=== PATIENT | female | born 1955 | race Caucasian/White ===

== ENCOUNTER 2020-11-17 19:46 | Observation (INO) ==
[2020-11-17] MEDS ORDERED: hydrALAZINE 20 MG/1 ML VIAL IV PRN (23:19)
[2020-11-17] MEDS ORDERED: NICOTINE 21 MG/24 HR PATCH TRANSDERM PRN (23:19)
[2020-11-17] MEDS ORDERED: DEXTROSE 50% 25 GM/50 ML VIAL IV PRN (23:19)
[2020-11-17] MEDS ORDERED: guaiFENesin/DM ER 600-30 MG TABLET PO PRN (23:19)
[2020-11-17] MEDS ORDERED: MORPHINE 4 MG/1 ML VIAL IV PRN (23:19)
[2020-11-17] MEDS ORDERED: GLUCAGON 1 MG VIAL IM PRN (23:19)
[2020-11-17] MEDS ORDERED: ACETAMINOPHEN 325 MG TABLET PO PRN (23:19)
[2020-11-17] MEDS ORDERED: ZALEPLON 5 MG CAPSULE PO PRN (23:19)
[2020-11-17] MEDS ORDERED: DOCUSATE SODIUM 100 MG CAPSULE PO PRN (23:19)
[2020-11-17] MEDS ORDERED: diphenhydrAMINE CAP 25 MG CAPSULE PO PRN (23:19)
[2020-11-17] MEDS ORDERED: ONDANSETRON 4 MG/2 ML VIAL IV PRN (23:19)
[2020-11-17] MEDS ORDERED: ENOXAPARIN 40 MG/0.4 ML SYRINGE SUBCUT SCH (23:30)
[2020-11-17 23:38] LABS: Basophils % 0.5 % (0.0-0.8); Eosinophils # 0.1 10*3/uL (0.0-0.87); Eosinophils % 1.1 % (0.00-10.9); Hematocrit 41.8 VOL% (35.7-47.0); Hemoglobin 13.4 GM/DL (12.0-16.0); Immature Granulocytes % 0.3 %; Immature Granulocytes Absolute 0.02 #; Lymphocytes # 3.4 10*3/uL (1.4-4.0); Lymphocytes % 43.7 % (21.3-54.2); Mean Corpuscular HGB Conc 32.1 GM/DL (32-36); Mean Corpuscular Volume 86.2 FL (87-102); Mean Platelet Volume 10.5 FL (9.6-12.0); Monocytes % 10.5 % (1.7-12.7); Neutrophils % 43.9 % (38.7-73.9); Platelet Count 244 T/CUMM (130-400); Red Blood Count 4.85 MC/CUMM (3.8-5.5); Red Cell Distribution Width 13.2 % (9.3-17.3); White Blood Count 7.8 T/CUMM (4-12)
[2020-11-17 23:51] LABS: Calcium 8.9 MG/DL (8.5-10.1); Osmolality,Calculated 272.8 MOS/KG (273-304); Potassium 3.9 MMOL/L (3.5-5.1)
[2020-11-18 01:28] LABS: ABG HCO3 23.6 MMOL/L (20-26); ABG Oxygen Saturation 99.8 % (95-100); ABG PCO2 22.7 MM HG (35-48); ABG PH 7.544 (7.35-7.45); ABG TCO2 16.9 MMOL/L (23-27)
[2020-11-18] MEDS ORDERED: PARoxetine 20 MG TABLET PO SCH (09:00)
[2020-11-18] MEDS ORDERED: SIMVASTATIN 20 MG TABLET PO SCH (09:00)
[2020-11-18] MEDS ORDERED: LOSARTAN 25 MG TABLET PO SCH (09:00)
[2020-11-18] MEDS ORDERED: PANTOPRAZOLE 40 MG TABLET PO SCH (09:00)
[2020-11-18 12:07] VITALS: BP 141/69
== END 2020-11-18 15:07 | disposition home or self-care (01) ==
LOC: N.5E → SUATTDRO 22:46
PROVIDERS: ADMIT Internal Medicine; ATTEND Student in an Organized Health Care Education/Training Program

== ENCOUNTER 2020-11-22 07:03 | Observation (INO) ==
[2020-11-22] MEDS ORDERED: ASPIRIN 325 MG TABLET PO STA (08:04)
[2020-11-22] MEDS ORDERED: NITROGLYCERIN 2% OINT 1 INCH/GM PACK TOP STA (08:05)
[2020-11-22] MEDS ORDERED: ENOXAPARIN 100 MG/ML SYRINGE SUBCUT STA (08:05)
[2020-11-22 08:15] LABS: Basophils # 0.1 10*3/uL (0.0-0.2); Basophils % 0.7 % (0.0-0.8); Eosinophils # 0.1 10*3/uL (0.0-0.87); Hematocrit 38.3 VOL% (35.7-47.0); Hemoglobin 12.8 GM/DL (12.0-16.0); Immature Granulocytes % 0.1 %; Immature Granulocytes Absolute 0.01 #; Lymphocytes # 2.1 10*3/uL (1.4-4.0); Lymphocytes % 31.1 % (21.3-54.2); Mean Corpuscular HGB Conc 33.4 GM/DL (32-36); Mean Corpuscular Volume 86.7 FL (87-102); Mean Platelet Volume 11.2 FL (9.6-12.0); Monocytes % 10.7 % (1.7-12.7); Neutrophils % 56.4 % (38.7-73.9); Platelet Count 178 T/CUMM (130-400); Red Blood Count 4.42 MC/CUMM (3.8-5.5); White Blood Count 6.7 T/CUMM (4-12)
[2020-11-22 08:28] LABS: Albumin 3.8 G/DL (3.4-5.0); Bilirubin,Total 0.4 MG/DL (0.2-1.0); Calcium 9.4 MG/DL (8.5-10.1); Osmolality,Calculated 282.3 MOS/KG (273-304); Potassium 4.2 MMOL/L (3.5-5.1); Total Protein 6.5 G/DL (6.4-8.2)
[2020-11-22] MEDS ORDERED: MAGNESIUM SULF RIDER 2 GM/50 ML PREMIX IV PRN (09:07)
[2020-11-22] MEDS ORDERED: guaiFENesin/DM ER 600-30 MG TABLET PO PRN (09:07)
[2020-11-22] MEDS ORDERED: POTASSIUM CHLORIDE 20 MEQ TABLET PO PRN (09:07)
[2020-11-22] MEDS ORDERED: MAGNESIUM SULF RIDER 4 GM/100 ML PREMIX IV PRN (09:07)
[2020-11-22] MEDS ORDERED: ACETAMINOPHEN 325 MG TABLET PO PRN (09:07)
[2020-11-22] MEDS ORDERED: ALUMINUM/MAGNES/SIMETH MAX STR 30 ML UDCUP PO PRN (09:07)
[2020-11-22] MEDS ORDERED: ONDANSETRON 4 MG/2 ML VIAL IV PRN (09:07)
[2020-11-22] MEDS ORDERED: hydrALAZINE 20 MG/1 ML VIAL IV PRN (09:07)
[2020-11-22] MEDS ORDERED: ZALEPLON 5 MG CAPSULE PO PRN (09:07)
[2020-11-22] MEDS ORDERED: DOCUSATE SODIUM 100 MG CAPSULE PO PRN (09:07)
[2020-11-22] MEDS ORDERED: diphenhydrAMINE CAP 25 MG CAPSULE PO PRN (09:07)
[2020-11-22 09:33] LABS: Risk Ratio 5.14; Thyroid Stimulating Hormone 3.59 uIU/ml (0.358-3.74); VLDL CHOLESTEROL 59.4 MG/DL
[2020-11-22] MEDS ORDERED: REGADENOSON 0.4 MG/5 ML SYRINGE IV ONE (09:43)
[2020-11-22] MEDS: ENOXAPARIN 40 MG/0.4 ML SYRINGE SUBCUT SCH (12:50)
[2020-11-22 13:07] LABS: Bilirubin,Urine Negative (Negative); Blood, Urine Negative (Negative); Glucose,Urine (UA) Negative (Negative); Hyaline Casts,Urine 1 /LPF (0-3); Ketones,Urine Negative (Negative); Mucus,Urine Occasional /LPF (Occasional); Nitrite,Urine Negative (Negative); Protein,Urine Negative; RBC,Urine <1 /HPF (0-4); Squamous Epithelial Cell,Urine Occasional /HPF (0-10); Urine Appearance CLEAR (Clear); Urine Color Yellow (Yellow); Urine Specific Gravity 1.021 (1.001-1.035); Urine Urobilinogen < 2.0 EU/DL (0.2-1.0)
[2020-11-22 13:28] LABS: Barbiturates Screen,Urine Negative (Negative); Benzodiazepines Screen,Urine Negative (Negative); Cannabinoid Screen,Urine Negative (Negative); Opiate Screen,Urine Negative (Negative); Phencyclidine Screen,Urine Negative (Negative)
[2020-11-22] MEDS: PANTOPRAZOLE 40 MG TABLET PO SCH (17:06)
[2020-11-22] MEDS: SUCRALFATE 1 GM TABLET PO SCH (18:31)
[2020-11-22] MEDS ORDERED: ROSUVASTATIN 20 MG TABLET PO SCH (21:00)
[2020-11-23 04:30] LABS: Basophils % 0.5 % (0.0-0.8); Eosinophils # 0.1 10*3/uL (0.0-0.87); Eosinophils % 1.3 % (0.00-10.9); Hematocrit 35.1 VOL% (35.7-47.0); Hemoglobin 11.5 GM/DL (12.0-16.0); Immature Granulocytes % 0.2 %; Immature Granulocytes Absolute 0.01 #; Lymphocytes % 32.2 % (21.3-54.2); Mean Corpuscular HGB Conc 32.8 GM/DL (32-36); Mean Corpuscular Volume 86.7 FL (87-102); Mean Platelet Volume 10.9 FL (9.6-12.0); Monocytes % 10.6 % (1.7-12.7); Neutrophils % 55.2 % (38.7-73.9); Platelet Count 166 T/CUMM (130-400); Red Blood Count 4.05 MC/CUMM (3.8-5.5); Red Cell Distribution Width 13.1 % (9.3-17.3); White Blood Count 6.2 T/CUMM (4-12)
[2020-11-23 05:05] LABS: Albumin 3.2 G/DL (3.4-5.0); Calcium 8.6 MG/DL (8.5-10.1); Osmolality,Calculated 284.1 MOS/KG (273-304); Potassium 3.9 MMOL/L (3.5-5.1); Total Protein 5.9 G/DL (6.4-8.2)
[2020-11-23 08:16] VITALS: BP 118/66
[2020-11-23] MEDS: SUCRALFATE 1 GM TABLET PO SCH (08:25)
[2020-11-23] MEDS: PANTOPRAZOLE 40 MG TABLET PO SCH (08:25)
[2020-11-23] MEDS ORDERED: PANTOPRAZOLE 40 MG TABLET PO SCH (09:00)
[2020-11-23] MEDS ORDERED: ASPIRIN EC 81 MG TABLET PO SCH (09:00)
[2020-11-23] MEDS: ENOXAPARIN 40 MG/0.4 ML SYRINGE SUBCUT SCH (09:30)
== END 2020-11-23 10:22 | disposition home or self-care (01) ==
LOC: N.ED 07:03 → N.EDINP 07:03 → N.TELEN 17:45
PROVIDERS: ADMIT Internal Medicine Cardiovascular Disease; ATTEND Internal Medicine Cardiovascular Disease

== ENCOUNTER 2022-06-29 14:14 | Inpatient (IN) ==
[2022-06-29] MEDS ORDERED: ONDANSETRON 4 MG/2 ML VIAL ONE (16:36)
[2022-06-29] MEDS ORDERED: MORPHINE 2 MG/1 ML SYRINGE ONE (16:36)
[2022-06-29 16:37] LABS: Basophils # 0.1 10*3/uL (0.0-0.2); Basophils % 0.4 % (0.0-0.8); Eosinophils # 0.1 10*3/uL (0.0-0.87); Eosinophils % 0.3 % (0.00-10.9); Hematocrit 23.9 VOL% (35.7-47.0); Hemoglobin 6.9 GM/DL (12.0-16.0); Immature Granulocytes % 0.5 %; Immature Granulocytes Absolute 0.08 #; Lymphocytes # 2.3 10*3/uL (1.4-4.0); Mean Corpuscular HGB Conc 28.9 GM/DL (32-36); Mean Corpuscular Volume 67.9 FL (87-102); Mean Platelet Volume 9.5 FL (9.6-12.0); Monocytes # 1.3 10*3/uL (0.11-0.8); Monocytes % 8.6 % (1.7-12.7); Neutrophils % 75.2 % (38.7-73.9); Platelet Count 595 T/CUMM (130-400); Red Blood Count 3.52 MC/CUMM (3.8-5.5); Red Cell Distribution Width 20.1 % (9.3-17.3); White Blood Count 15.4 T/CUMM (4-12)
[2022-06-29] MEDS ORDERED: ONDANSETRON 4 MG/2 ML VIAL IV STA (16:53)
[2022-06-29] MEDS ORDERED: MORPHINE 2 MG/1 ML SYRINGE IV STA (16:53)
[2022-06-29 16:58] LABS: Albumin 2.4 G/DL (3.4-5.0); Bilirubin,Total 0.4 MG/DL (0.20-1.00); Calcium 9.1 MG/DL (8.5-10.1); Osmolality,Calculated 266.2 MOS/KG (273-304); Potassium 4.3 MMOL/L (3.5-5.1); Total Protein 6.2 G/DL (6.4-8.2)
[2022-06-29 17:05] LABS: Hypochromia 2+
[2022-06-29 17:06] LABS: Anisocytosis Slight; Elliptocytes Few; Platelet Estimate Increased
[2022-06-29] MEDS ORDERED: SODIUM CHLORIDE 0.9% 1,000 ML IV STA (17:17)
[2022-06-29] MEDS ORDERED: PIPERACILLIN/TAZOBACTAM 3,375 MG in SODIUM CHLORIDE 0.9% 100 ML IV STA (17:17)
[2022-06-29 18:17] LABS: Bacteria,Urine Occasional /HPF (Few); Bilirubin,Urine Negative (Negative); Blood, Urine Negative (Negative); Glucose,Urine (UA) Negative (Negative); Hyaline Casts,Urine 1 /LPF (0-3); Ketones,Urine Negative (Negative); Mucus,Urine Few /LPF (Occasional); Nitrite,Urine Negative (Negative); Protein,Urine Negative (Negative); RBC,Urine 2 /HPF (0-4); Squamous Epithelial Cell,Urine Occasional /HPF (0-10); Urine Appearance Clear (Clear); Urine Color Yellow (Yellow)
[2022-06-29] MEDS ORDERED: ACETAMINOPHEN 325 MG TABLET PO PRN (18:57)
[2022-06-29] MEDS ORDERED: SODIUM CHLORIDE 0.9% 1,000 ML IV PRN (19:00)
[2022-06-29] MEDS: VANCOMYCIN INJ 1,000 MG in SODIUM CHLORIDE 0.9% 250 ML IV SCH (20:30)
[2022-06-29] MEDS: ENOXAPARIN 40 MG/0.4 ML SYRINGE SUBCUT SCH (21:08)
[2022-06-29] MEDS: HYDROmorphone 1 MG/1 ML SYRINGE IV PRN (23:46)
[2022-06-30] MEDS: DEXTROSE 5% NACL 0.9% 1,000 ML IV SCH ×2 (05:22→21:03)
[2022-06-30 07:01] LABS: Basophils # 0.1 10*3/uL (0.0-0.2); Basophils % 0.5 % (0.0-0.8); Eosinophils # 0.1 10*3/uL (0.0-0.87); Hematocrit 29.6 VOL% (35.7-47.0); Immature Granulocytes % 0.8 %; Immature Granulocytes Absolute 0.11 #; Lymphocytes # 1.6 10*3/uL (1.4-4.0); Lymphocytes % 11.3 % (21.3-54.2); Mean Corpuscular HGB Conc 31.1 GM/DL (32-36); Mean Corpuscular Volume 72.2 FL (87-102); Mean Platelet Volume 10.2 FL (9.6-12.0); Monocytes # 1.5 10*3/uL (0.11-0.8); Monocytes % 10.8 % (1.7-12.7); Neutrophils % 75.6 % (38.7-73.9); Platelet Count 485 T/CUMM (130-400); Red Cell Distribution Width 22.5 % (9.3-17.3); White Blood Count 14.1 T/CUMM (4-12)
[2022-06-30 07:03] LABS: Hemoglobin 9.2 GM/DL (12.0-16.0)
[2022-06-30 07:10] LABS: Thyroid Stimulating Hormone 2.83 uIU/ml (0.358-3.74)
[2022-06-30 07:25] LABS: Hypochromia 1+; Microcytosis 1+
[2022-06-30 07:26] LABS: Ovalocytes Slight; Spherocytes Slight; Target Cells Slight
[2022-06-30 07:29] LABS: Folate 16.02 NG/ML (5.38-24.0); Vitamin B12 1380 PG/ML (211-911)
[2022-06-30 07:39] LABS: % Iron Saturation 71.2 % (18-50); Ferritin 86.7 ng/mL (8-252); Osmolality,Calculated 267.1 MOS/KG (273-304); Potassium 3.8 MMOL/L (3.5-5.1)
[2022-06-30] MEDS ORDERED: ceFAZolin 2,000 MG/50 ML DUPLEX IV ONE (07:40)
[2022-06-30 07:57] LABS: INR 1.1; PT Patient Result 11.9 SECS (10.1-12.1)
[2022-06-30 08:11] LABS: Sedimentation Rate-Westergren 95 MM/HR (0-30)
[2022-06-30] MEDS: VANCOMYCIN INJ 1,000 MG in SODIUM CHLORIDE 0.9% 250 ML IV SCH ×2 (08:25→21:03)
[2022-06-30] MEDS: ONDANSETRON 4 MG/2 ML VIAL IV PRN ×2 (09:02→18:18)
[2022-06-30] MEDS: HYDROmorphone 1 MG/1 ML SYRINGE IV PRN ×2 (09:03→18:18)
[2022-06-30] MEDS ORDERED: DIAZEPAM 5 MG TABLET PO ONE (09:41)
[2022-06-30] MEDS: PIPERACILLIN/TAZOBACTAM 3,375 MG in SODIUM CHLORIDE 0.9% 100 ML IV SCH ×2 (09:55→17:04)
[2022-06-30 10:41] LABS: Hemoglobin A1 (Alkaline) 97.6 % (96.5-98.5); Hemoglobin A2 (Alkaline) 2.4 % (1.5-3.5)
[2022-06-30] MEDS ORDERED: BUPIVACAINE MPF 0.25% 10 ML VIAL ONE (11:28)
[2022-06-30] MEDS ORDERED: LIDOCAINE 1%/EPI INJ 20 ML VIAL ONE (11:29)
[2022-06-30] MEDS ORDERED: MIDAZOLAM 2 MG/2 ML VIAL ONE (11:33)
[2022-06-30] MEDS ORDERED: fentaNYL 100 MCG/2 ML VIAL ONE (11:33)
[2022-06-30] MEDS ORDERED: LACTATED RINGERS 1,000 ML IV SCH (12:00)
[2022-06-30] MEDS ORDERED: ONDANSETRON 4 MG/2 ML VIAL ONE (12:02)
[2022-06-30] MEDS ORDERED: SEVOFLURANE 1 UNIT/15 MINUTE INH ONE (12:02)
[2022-06-30] MEDS ORDERED: LIDOCAINE 2% 5 ML VIAL ONE (12:02)
[2022-06-30] MEDS ORDERED: propofoL 200 MG/20 ML VIAL IV ONE (12:02)
[2022-06-30] MEDS ORDERED: fentaNYL 100 MCG/2 ML VIAL IV ONE (14:00)
[2022-06-30] MEDS ORDERED: MIDAZOLAM 2 MG/2 ML VIAL IV ONE (14:00)
[2022-06-30 14:32] LABS: Hematocrit 30.8 VOL% (35.7-47.0); Hemoglobin 9.4 GM/DL (12.0-16.0)
[2022-06-30] MEDS: ENOXAPARIN 40 MG/0.4 ML SYRINGE SUBCUT SCH (21:04)
[2022-06-30] MEDS: ZALEPLON 5 MG CAPSULE PO PRN (21:04)
[2022-06-30] MEDS: PANTOPRAZOLE 40 MG TABLET PO SCH (21:04)
[2022-07-01] MEDS: PIPERACILLIN/TAZOBACTAM 3,375 MG in SODIUM CHLORIDE 0.9% 100 ML IV SCH ×3 (00:27→17:05)
[2022-07-01 04:25] LABS: Basophils # 0.1 10*3/uL (0.0-0.2); Basophils % 0.5 % (0.0-0.8); Eosinophils # 0.2 10*3/uL (0.0-0.87); Eosinophils % 1.6 % (0.00-10.9); Hematocrit 29.8 VOL% (35.7-47.0); Hemoglobin 9.1 GM/DL (12.0-16.0); Immature Granulocytes % 0.5 %; Immature Granulocytes Absolute 0.06 #; Lymphocytes # 2.2 10*3/uL (1.4-4.0); Lymphocytes % 20.1 % (21.3-54.2); Mean Corpuscular HGB Conc 30.5 GM/DL (32-36); Mean Corpuscular Volume 73.2 FL (87-102); Mean Platelet Volume 9.4 FL (9.6-12.0); Monocytes # 1.2 10*3/uL (0.11-0.8); Neutrophils % 66.3 % (38.7-73.9); Platelet Count 470 T/CUMM (130-400); Red Blood Count 4.07 MC/CUMM (3.8-5.5); Red Cell Distribution Width 22.8 % (9.3-17.3)
[2022-07-01 04:45] LABS: Hypochromia 1+; Microcytosis 1+; Ovalocytes Slight
[2022-07-01 04:46] LABS: Platelet Estimate Increased; Spherocytes Slight
[2022-07-01 04:53] LABS: Calcium 8.4 MG/DL (8.5-10.1); Osmolality,Calculated 270.8 MOS/KG (273-304); Potassium 3.8 MMOL/L (3.5-5.1)
[2022-07-01] MEDS: MULTIVITAMIN (CENTRUM) TABLET PO SCH (08:39)
[2022-07-01] MEDS: VANCOMYCIN INJ 1,000 MG in SODIUM CHLORIDE 0.9% 250 ML IV SCH (08:39)
[2022-07-01] MEDS: DEXTROSE 5% NACL 0.9% 1,000 ML IV SCH (12:48)
[2022-07-01] MEDS: HYDROmorphone 1 MG/1 ML SYRINGE IV PRN (17:33)
[2022-07-01 18:41] LABS: Soluble Transf Receptor (sTfR) 5.1 mg/L (1.8 - 4.6)
[2022-07-01] MEDS: ZALEPLON 5 MG CAPSULE PO PRN (20:49)
[2022-07-01] MEDS: PANTOPRAZOLE 40 MG TABLET PO SCH (20:49)
[2022-07-01] MEDS: ENOXAPARIN 40 MG/0.4 ML SYRINGE SUBCUT SCH (20:49)
[2022-07-02] MEDS: PIPERACILLIN/TAZOBACTAM 3,375 MG in SODIUM CHLORIDE 0.9% 100 ML IV SCH ×2 (00:06→08:18)
[2022-07-02] MEDS: DEXTROSE 5% NACL 0.9% 1,000 ML IV SCH (00:07)
[2022-07-02 04:35] LABS: Basophils # 0.1 10*3/uL (0.0-0.2); Basophils % 0.9 % (0.0-0.8); Eosinophils # 0.2 10*3/uL (0.0-0.87); Eosinophils % 3.1 % (0.00-10.9); Hematocrit 31.3 VOL% (35.7-47.0); Hemoglobin 9.3 GM/DL (12.0-16.0); Immature Granulocytes % 0.6 %; Immature Granulocytes Absolute 0.04 #; Lymphocytes # 1.8 10*3/uL (1.4-4.0); Mean Corpuscular HGB Conc 29.7 GM/DL (32-36); Mean Corpuscular Volume 73.8 FL (87-102); Mean Platelet Volume 9.3 FL (9.6-12.0); Monocytes # 0.8 10*3/uL (0.11-0.8); Monocytes % 11.8 % (1.7-12.7); Neutrophils % 57.6 % (38.7-73.9); Platelet Count 493 T/CUMM (130-400); Red Blood Count 4.24 MC/CUMM (3.8-5.5); Red Cell Distribution Width 23.3 % (9.3-17.3); White Blood Count 7.1 T/CUMM (4-12)
[2022-07-02 04:52] LABS: Calcium 8.6 MG/DL (8.5-10.1); Osmolality,Calculated 278.3 MOS/KG (273-304); Potassium 4.3 MMOL/L (3.5-5.1)
[2022-07-02 05:00] LABS: Hypochromia 1+; Microcytosis 1+
[2022-07-02 05:01] LABS: Ovalocytes Slight; Platelet Estimate Increased; Polychromasia Slight; Target Cells Slight
[2022-07-02 07:42] VITALS: BP 130/77
[2022-07-02] MEDS: MULTIVITAMIN (CENTRUM) TABLET PO SCH (08:18)
[2022-07-02] MEDS ORDERED: CEFUROXIME 500 MG TABLET PO SCH (17:00)
== END 2022-07-02 12:22 | disposition home or self-care (01) | DRG 921 ==
LOC: N.ED 14:14 → N.EDINP 18:56 → N.3E 20:16
PROVIDERS: ADMIT Hospitalist; ATTEND Hospitalist